=== PATIENT | female | born 1960 | race Caucasian/White ===

== ENCOUNTER 2019-01-14 19:02 | Emergency (ER) | payer SELFPAY ==
[~2019-01-14] VITALS: Ht 154.9 cm; Wt 63.0 kg
[2019-01-14] MEDS ORDERED: GENTAMICIN0.3 % OU (19:17)
[2019-01-14 19:25] VITALS: BP 155/92
== END 2019-01-14 19:25 | disposition home or self-care (01) | DRG 125 ==
LOC: ED 19:02
DX: H10.9 Unspecified conjunctivitis (principal)

== ENCOUNTER 2021-04-05 12:23 | Emergency (ER) | payer SELFPAY ==
[~2021-04-05] VITALS: Ht 154.9 cm; Wt 68.0 kg
[~2021-04-05 12:23] MED LIST: GENTAMICIN0.3 % OU
[2021-04-05 13:30] VITALS: BP 180/90
== END 2021-04-05 13:30 | disposition home or self-care (01) | DRG 156 ==
LOC: ED 12:23
PROC: 3E1B78Z Irrigation of Ear using Irrigating Substance, Via Natural or Artificial Opening (ICD-10-PCS; principal; 2021-04-05)
DX: H61.22 Impacted cerumen, left ear (principal); I10 Essential (primary) hypertension

== ENCOUNTER 2021-05-21 18:40 | Emergency (ER) | payer SELFPAY ==
[~2021-05-21] VITALS: Ht 139.7 cm; Wt 86.0 kg
[2021-05-21 20:25] VITALS: BP 168/73
== END 2021-05-21 20:25 | disposition home or self-care (01) | DRG 305 ==
LOC: ED 18:40
DX: I10 Essential (primary) hypertension (principal)

== ENCOUNTER 2021-06-03 20:43 | Emergency (ER) | payer SELFPAY ==
[~2021-06-03] VITALS: Ht 144.8 cm; Wt 86.0 kg
[2021-06-03 22:45] LABS: HEMATOCRIT 42.8 % (37.0-47.0); HEMOGLOBIN 12.8 g/dl (12.0-16.0); IMMATURE GRANULOCYTES 0.2 % (0.0-5.0); MEAN CELL VOLUME 88.4 fL CALC (80.0-100.0); MEAN CORPUSCULAR HGB 26.4 pG CALC (26.0-32.0); MEAN CORPUSCULAR HGB CONC 29.9 g/dL CAL (32.0-36.0); NEUT# 8.47 thou/uL (2.00-7.15); RED BLOOD COUNT 4.84 mill/uL (4.20-5.60); RED CELL DISTRI WIDTH 16.4 % (11.5-15.5)
[2021-06-03 23:04] LABS: ALBUMIN 4.3 g/dL (3.2-5.0); ALKALINE PHOSPHATASE 93 u/l (38-126); ANION GAP 17 (6-22 (CALC)); BILIRUBIN, TOTAL 0.8 mg/dL (0.0-1.4); BUN 15 mg/dL (7-17); BUN/CREATININE RATIO 21 (12-20 (CALC)); CARBON DIOXIDE 24 mmol/l (22-30); CHLORIDE 106 mmol/l (95-108); CREATININE 0.7 mg/dL (0.5-1.0); GFR > 60 ML/MIN (>=60 (CALC)); GFR FOR AFR.AMER. > 60 ML/MIN (>=60 (CALC)); SGOT/AST 23 u/l (14-36); SODIUM 143 mmol/l (137-146)
[2021-06-04] MEDS ORDERED: AMLODIPINE BESYL5 MG PO (00:42)
[2021-06-04 01:04] VITALS: BP 168/73
== END 2021-06-04 01:12 | disposition home or self-care (01) | DRG 305 ==
LOC: ED 20:43
DX: I10 Essential (primary) hypertension (principal); F41.9 Anxiety disorder, unspecified; Z91.19 Patient's noncompliance with other medical treatment and regimen